=== PATIENT | female | born 1985 | race Caucasian/White ===

== ENCOUNTER 2017-03-22 02:55 | Emergency (ER) | payer OTHER ==
[~2017-03-22 02:55] MED LIST: ALPRAZOLAM; ALPRAZOLAM PO; CYMBALTA PO; FLEXERIL PO; IBUPROFEN PO; K-DUR20 ME2; LASIX; MACROBID 100 M100 MG PO; PHENERGAN25 MG PO; VICODIN 5/500 T1 TAB PO; VICODIN PO
== END 2017-03-22 04:00 | disposition left against medical advice (07) ==
LOC: CED 02:55
DX: T40.1X1A Poisoning by heroin, accidental (unintentional), initial encounter (principal); F41.9 Anxiety disorder, unspecified; F43.10 Post-traumatic stress disorder, unspecified; F17.210 Nicotine dependence, cigarettes, uncomplicated; Z88.0 Allergy status to penicillin
CPT/HCPCS: 99282